=== PATIENT | female | born 1990 | race Caucasian/White ===

== ENCOUNTER 2017-04-12 10:07 | Emergency (ER) | payer MEDICAID ==
[2017-04-12] MEDS ORDERED: OXYCODONE-ACETAMINOPHEN 5-325 MG TABLET PO ONE (10:50)
[2017-04-12] MEDS ORDERED: PENICILLIN V POTASSIUM 500 MG TABLET PO ONE (10:50)
[2017-04-12] MEDS ORDERED: ONDANSETRON 4 MG TAB.RAPDIS PO ONE (10:50)
[2017-04-12 11:21] VITALS: BP 114/56
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
== END 2017-04-12 11:18 | disposition home or self-care (01) ==
LOC: ER 10:07
DX: K02.9 Dental caries, unspecified (principal); K08.89 Other specified disorders of teeth and supporting structures; R03.0 Elevated blood-pressure reading, without diagnosis of hypertension
CPT/HCPCS: 99282; S0119